=== PATIENT | male | born 1990 | race Caucasian/White ===

== ENCOUNTER 2020-04-01 12:03 | Emergency (ER) | payer MEDICAID ==
[~2020-04-01] VITALS: Ht 170.2 cm; Wt 90.5 kg
[~2020-04-01 12:03] MED LIST: ACET1TAB12 PO; CLIN-26 PO; CYCL-1 PO; FAMO-128 PO; HYDR-4383 PO; IBUP-1986 PO; IMO2C PO; NO HOME MEDS; ORPH100T2 PO; ZOF4T PO
[2020-04-01 12:35] LABS: BASOPHILS % (AUTO) 1.1 % (0-1); EOSINOPHILS # (AUTO) 0.2 X10'3 (0-0.9); HEMATOCRIT 37.5 % (42.0-52.0); HEMOGLOBIN 12.8 g/dl (14.0-17.9); LYMPHOCYTES # (AUTO) 2.3 X10'3 (1.1-4.8); LYMPHOCYTES % (AUTO) 50.3 % (21-51); MEAN CORPUSCULAR HEMOGLOBIN 29.9 PG (27.0-31.0); MEAN CORPUSCULAR HGB CONC 34.2 g/dL (33.0-36.5); MEAN CORPUSCULAR VOLUME 87.5 FL (78-98); MEAN PLATELET VOLUME 8.2 FL (7.4-10.4); MONOCYTES # (AUTO) 0.5 X10'3 (0-0.9); MONOCYTES % (AUTO) 11.7 % (2-12); NEUTROPHILS # (AUTO) 1.5 X10'3 (1.8-7.7); NEUTROPHILS % (AUTO) 32.9 % (42-75); PLATELET COUNT 233 X10'3 (140-440); RED BLOOD COUNT 4.29 X10'6 (4.70-6.10); RED CELL DISTRIBUTION WIDTH 14.5 % (11.5-14.5); WHITE BLOOD COUNT 4.5 X10'3 (4.5-11.0)
[2020-04-01] MEDS ORDERED: ketorolac tromethamine 15mg/ml inj. IM ONE (12:35)
[2020-04-01 12:48] LABS: ALANINE AMINOTRANSFERASE 89 U/L (12-78); ALBUMIN/GLOBULIN RATIO 1.2 (1.1-1.5); ALKALINE PHOSPHATASE 73 IU/L (46-116); ANION GAP 8 (8-16); ASPARTATE AMINO TRANSFERASE 46 U/L (10-37); BILIRUBIN,TOTAL 0.4 MG/DL (0.1-1.0); BLOOD UREA NITROGEN 15 MG/DL (7-18); BUN/CREATININE RATIO 15.6 (5.4-32.0); CALCIUM 9.1 MG/DL (8.5-10.1); CHLORIDE 105 MMOL/L (99-107); CREATININE 0.96 MG/DL (0.60-1.10); GLUCOSE 98 MG/DL (70-104); POTASSIUM 4.3 MMOL/L (3.5-5.1); SODIUM 140 MMOL/L (135-145); TOTAL CARBON DIOXIDE 27.4 MMOL/L (24-32); TOTAL PROTEIN 7.3 G/DL (6.4-8.2); eGFR > 90 ML/MIN
[2020-04-01 13:53] VITALS: BP 117/72
== END 2020-04-01 13:54 | disposition home or self-care (01) ==
LOC: ER 12:03
DX: R07.89 Other chest pain (principal); R06.02 Shortness of breath; G89.29 Other chronic pain; F12.90 Cannabis use, unspecified, uncomplicated; F15.90 Other stimulant use, unspecified, uncomplicated; Z86.19 Personal history of other infectious and parasitic diseases; Z88.8 Allergy status to other drugs, medicaments and biological substances; Z79.2 Long term (current) use of antibiotics; Z79.899 Other long term (current) drug therapy; Z72.89 Other problems related to lifestyle
CPT/HCPCS: 36415; 71045; 80053; 83880; 84484; 85025; 85610; 93005; 96372; 99285; J1885

== ENCOUNTER 2020-04-16 15:39 | Emergency (ER) | payer MEDICAID ==
[~2020-04-16] VITALS: Ht 170.2 cm; Wt 92.7 kg
[2020-04-16] MEDS ORDERED: LORazepam 1 MG tablet PO ONE (16:20)
[2020-04-16 17:00] VITALS: BP 113/63
== END 2020-04-16 16:57 | disposition home or self-care (01) ==
LOC: ER 15:39
DX: F41.0 Panic disorder [episodic paroxysmal anxiety] (principal); R07.89 Other chest pain; G89.29 Other chronic pain; F15.90 Other stimulant use, unspecified, uncomplicated; F12.90 Cannabis use, unspecified, uncomplicated; Z72.89 Other problems related to lifestyle; Z88.5 Allergy status to narcotic agent; Z79.2 Long term (current) use of antibiotics; Z79.899 Other long term (current) drug therapy
CPT/HCPCS: 71046; 93005; 99283

== ENCOUNTER 2020-07-07 13:29 | Emergency (ER) | payer MEDICAID ==
[~2020-07-07] VITALS: Ht 170.2 cm; Wt 78.0 kg
[2020-07-07 13:36] VITALS: BP 155/101
[2020-07-07] MEDS ORDERED: LIDOcaine 5% patch TP STA (14:58)
[2020-07-07] MEDS ORDERED: ketorolac tromethamine 15mg/ml inj. IM ONE (15:00)
[2020-07-07] MEDS ORDERED: orphenadrine citrate 60mg/2ml inj. IM ONE (15:00)
[2020-07-07] MEDS ORDERED: LIDO700A32 TOP (16:00)
== END 2020-07-07 16:18 | disposition home or self-care (01) ==
LOC: ER 13:30
DX: S29.012A Strain of muscle and tendon of back wall of thorax, initial encounter (principal); F12.10 Cannabis abuse, uncomplicated; F15.10 Other stimulant abuse, uncomplicated; G89.29 Other chronic pain; X58.XXXA Exposure to other specified factors, initial encounter; Y93.89 Activity, other specified; Y92.89 Other specified places as the place of occurrence of the external cause; Y99.8 Other external cause status; Z88.5 Allergy status to narcotic agent; Z79.899 Other long term (current) drug therapy
CPT/HCPCS: 96372; 99284; J1885; J2360

== ENCOUNTER 2021-04-24 19:43 | Emergency (ER) | payer MEDICAID ==
[~2021-04-24] VITALS: Ht 170.2 cm; Wt 69.4 kg
[~2021-04-24 19:43] MED LIST changes: +LIDO700A32 TOP
--- NOTE | 2021-04-24 20:44 | NUR ---
patient in the er with complaints of unknown substance in the eye around 1245. he works at [employer] . he states that he immediately flushed with saline however it still feel slike there is something in the eye, denies visiual changes
[2021-04-24] MEDS ORDERED: proparacaine 0.5% ophthalmic drops 15ml EACHEYE ONE (20:55)
[2021-04-24] MEDS ORDERED: POLOS RIGHTEYE (21:57)
[2021-04-24] MEDS: polymyxin B sulf/tmp ophth drops 10ml RIGHTEYE SCH ×2 (22:16→22:18)
--- NOTE | 2021-04-24 22:19 | NUR ---
eye gauze in place
[2021-04-24 22:20] VITALS: BP 121/78
== END 2021-04-24 22:21 | disposition home or self-care (01) ==
LOC: ER 19:44
DX: S05.01XA Injury of conjunctiva and corneal abrasion without foreign body, right eye, initial encounter (principal); H57.11 Ocular pain, right eye; G89.29 Other chronic pain; F12.90 Cannabis use, unspecified, uncomplicated; F15.90 Other stimulant use, unspecified, uncomplicated; Z72.89 Other problems related to lifestyle; Z88.5 Allergy status to narcotic agent; Z79.2 Long term (current) use of antibiotics; Z79.899 Other long term (current) drug therapy; X58.XXXA Exposure to other specified factors, initial encounter; Y93.89 Activity, other specified; Y92.89 Other specified places as the place of occurrence of the external cause; Y99.8 Other external cause status
CPT/HCPCS: 99283